=== PATIENT | female | born 1950 | race Caucasian/White ===

== ENCOUNTER 2024-12-05 10:03 | Emergency (ER) | payer MEDICARE, OTHER, SELFPAY ==
[2024-12-05] VITALS (20 sets, daily range): BP systolic 93–115; BP diastolic 50–63; PULSE 65–95; RESP 16; TEMP 36.8; O2SAT 87–100; BMI 34.4
--- NOTE | 2024-12-05 | DI.US.S_ITS ---
PROCEDURE: US PELVIC COMPLETE INDICATIONS: Pelvic pain/ovarian mass TECHNIQUE: Real-time scanning was performed of the pelvic organs, with image documentation. Additional endovaginal scanning was necessary due to incomplete visualization of the adnexal and endometrial structures by transabdominal scanning. COMPARISON: [facility], CT, CT ABDOMEN PELVIS W CON, 12/05/2024, 11:48. FINDINGS: Uterus: The uterus measures 7.6 x 2.7 x 2.5 cm. The endometrial stripe is filled with fluid and debris. Ovaries: Within the right adnexal region, there is a multi cystic mass seen, measuring 5.6 x 4.7 x 7.6 cm. On the left, there is an adnexal mass measuring 10.7 x 0.8 by 10.6 cm. This appears to be filled with debris. The ovaries are not seen separate from these endometrial masses. Other: No pathologic free abdominal or pelvic fluid. IMPRESSION: Bilateral cystic ovarian masses are seen. In a patient of this age, concern is raised for cystic ovarian neoplasm. - Gynecology consultation is recommended. Abnormal endometrial stripe, with abnormal fluid/debris along the endometrial stripe. We strive to produce accurate, complete, and clear reports of imaging services. To assist us in improving patient care, this report was composed using standard report templates and voice recognition software. Therefore, it may contain abnormal punctuation, insertions and/or omissions. Occasional wrong-word or sound-alike substitutions may occur. Though we review the report and make efforts to correct it, we do recommend that the report be read carefully in proper context to recognize any text inaccuracies. Dictated by: Man Pena M.D. on 12/05/2024 at 14:50 Approved by: Man Pena M.D. on 12/05/2024 at 14:55
--- NOTE | 2024-12-05 11:05 | ED.ABDPAIN ---
HPI - Abdominal Pain General Chief Complaint: Abdominal Pain Stated Complaint: abdominal pain Time Seen by Provider: 12/05/24 10:59 History of Present Illness HPI narrative: Patient has history appendectomy diverticulosis diverticulitis, here with complaints 3 days of right lower quadrant pain suprapubic pain right upper quadrant pain epigastric pain with nausea and vomiting. No black or bloody stools. No urinary complaints. Patient states feels like diverticulitis in the past. No prior history of admission for diverticulitis. She states she recently received a letter in the mail from provider for scheduling colonoscopy. Patient in no distress. Related Data Previous Rx's ?Medication ?Instructions ?Recorded hydrocodone 5 mg-acetaminophen 325 1 tab PO Q6H PRN pain #24 tabs 12/05/24 mg tablet ondansetron 4 mg disintegrating 4 mg PO Q6H PRN nausea and 12/05/24 tablet vomiting #20 tabs Allergies Allergy/AdvReac Type Severity Reaction Status Date / Time No Known Drug Allergies Allergy Verified 12/05/24 17:21 Review of Systems Review of Systems Narrative: GENERAL: Negative chills, fatigue, malaise, fever, sweats. HEENT: Negative sinus pain, ear pain, sore throat RESPIRATORY: Negative dyspnea, cough CARDIOVASCULAR: Negative chest pain, palpitations GASTROINTESTINAL: Negative vomiting, nausea, positive abdominal pain : Negative dysuria, frequency, hematuria MUSCULOSKELETAL: Negative muscle or bony pain SKIN: Negative rash, skin lesions NEUROLOGIC: Negative weakness, numbness ROS Unobtainable: All systems reviewed & are unremarkable except as noted in HPI and below Patient History Social History Smoking Status: Former smoker Exam Narrative Exam Narrative: GENERAL: in no distress, not toxic not dyspneic HEAD: Normocephalic. EYES: Pupils equal round ENT: Mucous membranes moist. NECK: Trachea midline. CARDIOVASCULAR: Regular rate and rhythm RESPIRATORY: Clear to auscultation. Breath sounds equal bilaterally. No wheezes, rales, or rhonchi. GASTROINTESTINAL: Abdomen soft, mild suprapubic tenderness right lower quadrant tenderness and epigastric tenderness no peritoneal signs bowel sounds are present. No guarding or rebound. No CVA tenderness. EXTREMITIES: No gross deformities. BACK: No flank tenderness. NEURO: AOx4. Clear speech SKIN: Warm and dry PSYCH: Not anxious, is cooperative Initial Vital Signs Initial Vital Signs: Vital Signs Temperature 98.2 F 12/05/24 10:20 Pulse Rate 95 H 12/05/24 10:20 Respiratory Rate 16 12/05/24 10:20 Blood Pressure 112/63 12/05/24 10:20 Pulse Oximetry 98 12/05/24 10:20 Oxygen Delivery Method Room Air 12/05/24 10:20 Course Orders Ordered: Discontinued Medications Hydromorphone HCl (Hydromorphone 1 Mg Inj) 1 mg IV NOW ONE Stop: 12/05/24 14:33 Last Admin: 12/05/24 14:35 Dose: 1 mg Documented By: Sodium Chloride (Normal Saline 0.9%) 1,000 mls @ 1,000 mls/hr IV BOLUS ONE Stop: 12/05/24 12:03 Last Infusion: 12/05/24 12:44 Dose: Infused Documented By: Admin: 12/05/24 11:23 Dose: 1,000 mls/hr Documented By: Morphine Sulfate (Morphine 4 Mg/Ml Inj) 4 mg IV Q3HR PRN PRN Reason: Pain, Mild (1-3) Last Admin: 12/05/24 15:03 Dose: 4 mg Documented By: Admin: 12/05/24 11:22 Dose: 4 mg Documented By: Ondansetron HCl (Ondansetron 4 Mg/2 Ml Inj) 4 mg IV NOW PRN PRN Reason: Nausea And Vomiting Ondansetron HCl (Ondansetron 4 Mg Odt) 4 mg PO NOW PRN PRN Reason: Nausea And Vomiting Vital Signs Vital signs: Vital Signs - 8 hr 12/05/24 10:20 12/05/24 10:37 12/05/24 11:00 Temperature 98.2 F Pulse Rate 95 H 83 Respiratory Rate 16 Blood Pressure 112/63 Pulse Oximetry 98 99 87 L Oxygen Delivery Method Room Air 12/05/24 11:00 12/05/24 11:30 12/05/24 11:30 Temperature Pulse Rate 72 Respiratory Rate Blood Pressure 104/55 L 115/58 L Pulse Oximetry 100 Oxygen Delivery Method 12/05/24 11:56 12/05/24 11:56 12/05/24 12:00 Temperature Pulse Rate 74 70 Respiratory Rate Blood Pressure 111/56 L Pulse Oximetry 98 97 Oxygen Delivery Method Room Air 12/05/24 12:00 12/05/24 12:30 12/05/24 12:46 Temperature Pulse Rate 75 76 Respiratory Rate Blood Pressure 106/59 L Pulse Oximetry 98 99 Oxygen Delivery Method 12/05/24 12:46 12/05/24 13:00 12/05/24 13:00 Temperature Pulse Rate 70 Respiratory Rate Blood Pressure 94/55 L 104/58 L Pulse Oximetry 100 Oxygen Delivery Method 12/05/24 13:30 12/05/24 13:30 12/05/24 14:00 Temperature Pulse Rate 70 68 Respiratory Rate Blood Pressure 100/57 L Pulse Oximetry 96 99 Oxygen Delivery Method Room Air 12/05/24 14:00 12/05/24 14:30 12/05/24 14:30 Temperature Pulse Rate 67 Respiratory Rate Blood Pressure 105/57 L 98/54 L Pulse Oximetry 100 Oxygen Delivery Method Room Air 12/05/24 14:44 12/05/24 14:44 12/05/24 14:45 Temperature Pulse Rate 67 68 Respiratory Rate Blood Pressure 93/50 L Pulse Oximetry 100 100 Oxygen Delivery Method 12/05/24 14:45 12/05/24 14:46 12/05/24 14:46 Temperature Pulse Rate 68 Respiratory Rate Blood Pressure 103/54 L 102/55 L Pulse Oximetry 100 Oxygen Delivery Method Room Air 12/05/24 14:47 12/05/24 14:47 12/05/24 14:48 Temperature Pulse Rate 69 65 Respiratory Rate Blood Pressure 102/58 L Pulse Oximetry 99 100 Oxygen Delivery Method 12/05/24 14:48 12/05/24 15:00 12/05/24 16:48 Temperature Pulse Rate 67 Respiratory Rate Blood Pressure 98/55 L Pulse Oximetry 99 95 Oxygen Delivery Method 12/05/24 16:49 12/05/24 16:49 Temperature Pulse Rate 66 Respiratory Rate Blood Pressure 96/53 L Pulse Oximetry 99 Oxygen Delivery Method Room Air MDM - Abdominal Pain Lab Data 12/05/24 10:59 12/05/24 10:59 Labs: Lab Results 12/05/24 Range/Units 10:59 WBC 15.3 H (4.5-11.0) X10^3/uL RBC 4.39 (4.0-5.2) X10^6/uL Hgb 13.7 (12.0-16.0) g/dL Hct 39.6 (36-46) % MCV 90.3 (80-100) fL MCH 31.3 (26-34) PG MCHC 34.6 (30-36) % RDW 14.2 (11.6-14.8) % Plt Count 238 (150-400) X10^3/uL Neut % (Auto) 82.7 H (50-75) % Lymph % (Auto) 9.3 L (25-40) % [place] % (Auto) 7.4 (3-14) % Eos % (Auto) 0.3 L (2-4) % Baso % (Auto) 0.3 (0-2) % Neut # (Auto) 85621 H (1508-9957) /uL Lymph # (Auto) 1400 (8257-1048) /uL [place] # (Auto) 1100 H (0-900) /uL Eos # (Auto) 0 (0-450) /uL Baso # (Auto) 0 (0-100) /uL Sodium 131 L (137-145) mmol/L Potassium 4.4 (3.4-5.1) mmol/L Chloride 101 (98-107) mmol/L Carbon Dioxide 22 (22-32) mmol/L BUN 15 (7-17) mg/dL Creatinine 0.89 (0.52-1.04) mg/dL Estimated GFR > 60 (>60) mL/min BUN/Creatinine Ratio 16.9 (6-22) Glucose 114 H (70-99) mg/dL Calcium 9.1 (8.4-10.2) mg/dL Total Bilirubin 1.0 (0.2-1.3) mg/dL AST 39 H (14-36) IU/L ALT 20 (<35) IU/L Alkaline Phosphatase 49 (38-126) U/L Total Protein 7.5 (6.3-8.2) g/dL Albumin 4.4 (3.5-5.0) g/dL Globulin 3.1 (1.7-4.1) g/dL Albumin/Globulin Ratio 1.4 (1.0-2.8) Lipase 114 (23-300) U/L CA 125 Antigen 29.4 (0-35) U/mL Point of care testing: Urine Dip Bedside Urine Glucose Negative Bedside Urine Bilirubin - Negative Bedside Urine Ketone +/- 5 Urine Specific [place] 1.005 Bedside Urine Occult Blood - Negative Bedside Urine pH 7.0 Bedside Urine Protein - Negative Bedside Urine Urobilinogen +/- 1mg Bedside Urine Nitrite - Negative Bedside Urine Leukocytes - Negative Esterase Imaging Data CT scan - abdomen/pelvis: Radiologist's Impression: [address] [address] [address] Scan Report Signed Patient: Leonarda Cole MR#: [id number] : 1950 Acct:[id number] Age/Sex: 74 / F Date of Service: 12/05/24 Loc: ED Accession Number: [id number] Procedure: CT abdomen pelvis w con Ordering Provider: Cornell Aldridge MD PROCEDURE: CT ABDOMEN PELVIS W CON INDICATIONS: Right lower quadrant pain TECHNIQUE: After the administration of intravenous contrast, axial sections acquired from the lung bases to the pubic symphysis. Coronal and sagittal reformats were performed. For radiation dose reduction, the following was used: automated exposure control, adjustment of mA and/or kV according to patient size. COMPARISON: None. FINDINGS: Image quality: Diagnostic. Lower Chest: No significant findings. ABDOMEN: Liver: No solid mass. Nonenhancing water density liver cysts are seen. Gallbladder: No radiopaque gallstones or wall thickening. Biliary ducts: No biliary dilation. Pancreas: No ductal dilation. Spleen: Size is within normal limits. Adrenal Glands: No adrenal nodules. Kidneys and Ureters: No hydronephrosis. No solid mass. No complex renal cystic lesion which requires follow up. Stomach and Bowel: No appendix (either normal or abnormal) is identified on this study. Normal colonic caliber, without significant wall thickening. Colonic diverticulosis is seen, without findings of active diverticulitis. No dilated loops of small bowel are seen. Peritoneum: No abnormal intraperitoneal fluid. No free air. Ventral Wall: No significant ventral hernia. Abdominal Nodes: No retroperitoneal or mesenteric adenopathy by size criteria. Vessels: Aorta and inferior vena cava are normal in size. PELVIS: Pelvic Organs: There is a left adnexal cystic mass seen measuring up to 11 cm and measuring 26 Hounsfield units. Right ovarian cysts are seen, with mild thickening of the cystic ferrera, with the largest locule measuring 5.8 cm. Bladder: No bladder wall thickening, accounting for underdistention. Pelvic Nodes: No enlarged lymph nodes. Miscellaneous: No inguinal hernias are seen. Bones: No aggressive osseous abnormality. Focal L5-S1 degenerative change is seen. Milder degenerative changes are seen elsewhere. IMPRESSION: Bilateral ovarian cysts are seen, including a multiloculated lesion involving the right ovary and 11 cm left ovarian cyst. - In this patient with a presenting history of right lower quadrant pain, please consider a follow-up pelvic ultrasound for further evaluation. In a patient of this age, concern is raised for cystic ovarian neoplasm. - Gynecology referral is recommended. No appendix is seen. The patient has a history of prior appendectomy. Additional findings: Simple liver cysts Diverticulosis, without active diverticulitis Focal L5-S1 degenerative change Dictated by: Man Pena M.D. on 12/05/2024 at 11:20 Approved by: Man Pena M.D. on 12/05/2024 at 11:23 US - INFORMATION DEVELOPER: Radiologist's Impression: [address] [address] Ultrasound Report Signed Patient: Leonarda Cole MR#: [id number] : 1950 Acct:[id number] Age/Sex: 74 / F Date of Service: 12/05/24 Loc: ED Accession Number: [id number] Procedure: US pelvic complete Ordering Provider: Cornell Aldridge MD PROCEDURE: US PELVIC COMPLETE INDICATIONS: Pelvic pain/ovarian mass TECHNIQUE: Real-time scanning was performed of the pelvic organs, with image documentation. Additional endovaginal scanning was necessary due to incomplete visualization of the adnexal and endometrial structures by transabdominal scanning. COMPARISON: [facility], CT, CT ABDOMEN PELVIS W CON, 12/05/2024, 11:48. FINDINGS: Uterus: The uterus measures 7.6 x 2.7 x 2.5 cm. The endometrial stripe is filled with fluid and debris. Ovaries: Within the right adnexal region, there is a multi cystic mass seen, measuring 5.6 x 4.7 x 7.6 cm. On the left, there is an adnexal mass measuring 10.7 x 0.8 by 10.6 cm. This appears to be filled with debris. The ovaries are not seen separate from these endometrial masses. Other: No pathologic free abdominal or pelvic fluid. IMPRESSION: Bilateral cystic ovarian masses are seen. In a patient of this age, concern is raised for cystic ovarian neoplasm. - Gynecology consultation is recommended. Abnormal endometrial stripe, with abnormal fluid/debris along the endometrial stripe. We strive to produce accurate, complete, and clear reports of imaging services. To assist us in improving patient care, this report was composed using standard report templates and voice recognition software. Therefore, it may contain abnormal punctuation, insertions and/or omissions. Occasional wrong-word or sound-alike substitutions may occur. Though we review the report and make efforts to correct it, we do recommend that the report be read carefully in proper context to recognize any text inaccuracies. Dictated by: Man Pena M.D. on 12/05/2024 at 14:50 Approved by: Man Pena M.D. on 12/05/2024 at 14:55 [facility] Narrative Medical decision making narrative: Patient has history appendectomy diverticulosis diverticulitis, here with complaints 3 days of right lower quadrant pain suprapubic pain right upper quadrant pain epigastric pain with nausea and vomiting. No black or bloody stools. No urinary complaints. Patient states feels like diverticulitis in the past. No prior history of admission for diverticulitis. She states she recently received a letter in the mail from provider for scheduling colonoscopy. Patient in no distress. After history and exam, CBC CMP urinalysis CT abdomen pelvis normal saline Zofran morphine MDM Differential considered: Diverticulosis diverticulitis bowel obstruction bowel perforation colitis UTI pyelonephritis Medical records reviewed: No recent visit for this complaint Lab Test results independently reviewed as above. Pertinent findings: WBC 15.3 hemoglobin 13.7 Imaging studies independently reviewed: CT abdomen pelvis no diverticulitis but ovarian lesions seen, ultrasound pelvis concerning findings on ovaries as well as uterus. Ovarian cyst/mass. Consultations: 6:05 p.m.. I spoke with hog tender on-call, Dr. Wilkinson, who would like CA 125 at it as well as HE marker. His office will contact patient tomorrow for office appointment this week. Re-evaluations: 1:40 p.m.. Updated patient results so far and needs pelvic ultrasound. No diverticulitis. 6:10 p.m.. Updated patient and results and my discussion with hog tender services. They do understand findings are needing to workup for neoplasm/cancer. Return precautions reviewed. They desire discharge home. Discussion: Appropriate for discharge home. Exam is reassuring. Return precautions reviewed with patient and . Short course of pain medication provided. [employer] service was contacted. They will follow up with patient this week. Diagnosis: Pelvic pain/ovarian mass Discharge Plan Departure Patient Disposition: Home Clinical Impression: Acute pelvic pain Instructions: DI for Abdominal Pain-Adult Activity Restrictions/Additional Instructions: Your exam and laboratory studies and imaging studies need to be follow up with hog tender services. Dr. Wilkinson office will be calling you tomorrow for follow up this week. No driving operating machine today or when taking prescribed pain medication. Return if worse if any questions or concerns. Prescriptions: New hydrocodone-acetaminophen 5-325 mg tablet 1 tab PO Q6H PRN (Reason: pain) Qty: 24 0RF ondansetron 4 mg tablet,disintegrating 4 mg PO Q6H PRN (Reason: nausea and vomiting) Qty: 20 0RF Referrals: Chris Wilkinson MD [Physician, HAND [employer]ER] Stand Alone Forms: Patient Portal/API
[2024-12-05 11:06] LABS: Add Manual Diff / Slide Review NO; Hematocrit 39.6 % (36-46); Hemoglobin 13.7 g/dL (12.0-16.0); Lymphocytes Absolute Auto 1400 /uL (1100-4500); Mean Corpuscular HGB Conc 34.6 % (30-36); Mean Corpuscular Hemoglobin 31.3 PG (26-34); Mean Corpuscular Volume 90.3 fL (80-100); Platelet Count 238 X10^3/uL (150-400)
--- NOTE | 2024-12-05 11:08 | DI.CT.S_ITS ---
PROCEDURE: CT ABDOMEN PELVIS W CON INDICATIONS: Right lower quadrant pain TECHNIQUE: After the administration of intravenous contrast, axial sections acquired from the lung bases to the pubic symphysis. Coronal and sagittal reformats were performed. For radiation dose reduction, the following was used: automated exposure control, adjustment of mA and/or kV according to patient size. COMPARISON: None. FINDINGS: Image quality: Diagnostic. Lower Chest: No significant findings. ABDOMEN: Liver: No solid mass. Nonenhancing water density liver cysts are seen. Gallbladder: No radiopaque gallstones or wall thickening. Biliary ducts: No biliary dilation. Pancreas: No ductal dilation. Spleen: Size is within normal limits. Adrenal Glands: No adrenal nodules. Kidneys and Ureters: No hydronephrosis. No solid mass. No complex renal cystic lesion which requires follow up. Stomach and Bowel: No appendix (either normal or abnormal) is identified on this study. Normal colonic caliber, without significant wall thickening. Colonic diverticulosis is seen, without findings of active diverticulitis. No dilated loops of small bowel are seen. Peritoneum: No abnormal intraperitoneal fluid. No free air. Ventral Wall: No significant ventral hernia. Abdominal Nodes: No retroperitoneal or mesenteric adenopathy by size criteria. Vessels: Aorta and inferior vena cava are normal in size. PELVIS: Pelvic Organs: There is a left adnexal cystic mass seen measuring up to 11 cm and measuring 26 Hounsfield units. Right ovarian cysts are seen, with mild thickening of the cystic ferrera, with the largest locule measuring 5.8 cm. Bladder: No bladder wall thickening, accounting for underdistention. Pelvic Nodes: No enlarged lymph nodes. Miscellaneous: No inguinal hernias are seen. Bones: No aggressive osseous abnormality. Focal L5-S1 degenerative change is seen. Milder degenerative changes are seen elsewhere. IMPRESSION: Bilateral ovarian cysts are seen, including a multiloculated lesion involving the right ovary and 11 cm left ovarian cyst. - In this patient with a presenting history of right lower quadrant pain, please consider a follow-up pelvic ultrasound for further evaluation. In a patient of this age, concern is raised for cystic ovarian neoplasm. - Gynecology referral is recommended. No appendix is seen. The patient has a history of prior appendectomy. Additional findings: Simple liver cysts Diverticulosis, without active diverticulitis Focal L5-S1 degenerative change Dictated by: Man Pena M.D. on 12/05/2024 at 11:20 Approved by: Man Pena M.D. on 12/05/2024 at 11:23
[2024-12-05] MEDS: MORPHINE 4 MG/ML INJ IV ×2 (11:22→15:03)
[2024-12-05] MEDS: SODIUM CHLORIDE 0.9% 1,000 ML 1000 ML IV (11:23)
[2024-12-05 11:26] LABS: Alanine Aminotransferase 20 IU/L (<35); Albumin 4.4 g/dL (3.5-5.0); Albumin Globulin Ratio 1.4 (1.0-2.8); Alkaline Phosphatase 49 U/L (38-126); Blood Urea Nitrogen 15 mg/dL (7-17); Calcium 9.1 mg/dL (8.4-10.2); Carbon Dioxide 22 mmol/L (22-32); Chloride 101 mmol/L (98-107); Estimated Glomerular Filt Rate > 60 mL/min (>60); Globulin 3.1 g/dL (1.7-4.1); Glucose 114 mg/dL (70-99); HEMOLYSIS 17 (0-50); Lipase 114 U/L (23-300); Potassium 4.4 mmol/L (3.4-5.1); Sodium 131 mmol/L (137-145); Total Protein 7.5 g/dL (6.3-8.2)
--- NOTE | 2024-12-05 13:57 | PC.NURSE ---
Pt lying back in [facility]. Appears in NAD. Discussed plan of care.
[2024-12-05] MEDS: HYDROMORPHONE 1 MG INJ IV (14:35)
== END 2024-12-05 18:31 | disposition home or self-care (01) ==
PROVIDERS: Emergency Provider Emergency Medicine; Family Provider Obstetrics & Gynecology
DX: R10.2 Pelvic and perineal pain (principal); R11.2 Nausea with vomiting, unspecified
CPT/HCPCS: 36415; 74177; 76830; 76856; 80053; 81003; 83690; 85025; 86304; 86305; 96361; 96374; 96375; 96376; 99284; J1171; J2270; Q9967

== ENCOUNTER → 2024-12-07 10:48 | Outpatient (CLI) | payer MEDICARE, OTHER, SELFPAY ==
--- NOTE | 2024-12-07 10:51 | DI.CT.S_ITS ---
PROCEDURE: CT CHEST WO CON INDICATIONS: Bilateral ovarian cysts in a postmenopausal patient TECHNIQUE: Noncontrast 5 mm thick sections acquired from the pulmonary apices to the posterior costophrenic angles. 1 mm lung window, 5 mm thick coronal and sagittal and 7 mm axial MIP reformats were then acquired. For radiation dose reduction, the following was used: automated exposure control, adjustment of mA and/or kV according to patient size. COMPARISON: [facility], CT, CT ABDOMEN PELVIS W CON, 12/05/2024, 11:48. FINDINGS: Image quality: Diagnostic. Lower Neck: No enlarged lymph nodes. Thyroid: No thyroid nodules which require sonographic follow up, per consensus guidelines. Axillae: No enlarged lymph nodes. Chest Wall: Postoperative change of the left breast can be seen. Bones: Accentuated thoracic kyphosis is seen. Age-appropriate bony degenerative changes are seen. Lungs and Pleura: No pneumothorax or pleural effusions. No consolidation or suspicious nodules. Heart: Heart size is normal. No pericardial effusion. Thoracic Vessels: The aorta and pulmonary arteries demonstrate normal size. Mediastinum and [place]: No enlarged lymph nodes. Esophagus: No wall thickening. No hiatal hernia. Upper Abdomen: Please see the recent abdominal CT report. IMPRESSION: No pulmonary nodules are seen. No enlarged mediastinal lymph nodes are seen. No findings of bony metastatic disease can be seen. Additional findings: Left breast postoperative change Dictated by: Man Pena M.D. on 12/07/2024 at 10:22 Approved by: Man Pena M.D. on 12/07/2024 at 10:25
== END ==
PROVIDERS: Family Provider Obstetrics & Gynecology; PCP Physician Assistant; Referring Provider Obstetrics & Gynecology; Visit Provider Obstetrics & Gynecology
DX: N83.201 Unspecified ovarian cyst, right side (principal); N83.202 Unspecified ovarian cyst, left side; Z98.890 Other specified postprocedural states
CPT/HCPCS: 71250